=== PATIENT | male | born 1975 | race Caucasian/White ===

== ENCOUNTER 2022-02-09 13:11 | Observation (INO) | payer OTHER ==
[2022-02-09] MEDS ORDERED: Ondansetron 4 MG/2 ML SDV IVPUSH ONE (14:20)
[2022-02-09] MEDS: Doxycycline 100 MG in Sodium Chloride 0.9% 100 ML IV SCH (14:28)
[2022-02-09] MEDS ORDERED: Lactated Ringers 1,000 ML IV SCH (14:30)
[2022-02-09 14:47] LABS: ESTIMATED GFR 33 mL/min (>60)
[2022-02-09] MEDS ORDERED: Acetaminophen 325 MG Tab PO ONE (16:02)
[2022-02-09] MEDS ORDERED: Sodium Chloride 0.9% 10 ML Syringe FLUSH PRN (21:55)
[2022-02-09] MEDS ORDERED: Temazepam 15 MG Cap PO PRN (21:55)
[2022-02-09] MEDS ORDERED: Ondansetron 4 MG/2 ML SDV IV PRN (21:55)
[2022-02-09] MEDS ORDERED: Acetaminophen 650 MG Supp RECTAL PRN (21:55)
[2022-02-09] MEDS ORDERED: Acetaminophen/HYDROcodone 325-5 MG Tab PO PRN (21:55)
[2022-02-09] MEDS ORDERED: Magnesium Hydroxide 400 MG/5 ML Susp 30 ML Cup PO PRN (21:55)
[2022-02-09] MEDS ORDERED: Enoxaparin 40 MG/0.4 ML Syringe SUBCUT SCH (22:00)
[2022-02-09] MEDS: Lactated Ringers 1,000 ML IV SCH (22:59)
[2022-02-09] MEDS ORDERED: Acetaminophen 325 MG Tab PO PRN (23:44)
[2022-02-10] MEDS: Doxycycline 100 MG in Sodium Chloride 0.9% 100 ML IV SCH (02:28)
[2022-02-10] MEDS: Lactated Ringers 1,000 ML IV SCH (08:24)
[2022-02-10] MEDS: Mycophenolate Mofetil 250 MG Cap PO SCH ×2 (09:55→20:31)
[2022-02-10] MEDS: Verapamil 120 MG Tab.ER PO SCH (09:55)
[2022-02-10] MEDS: Cholecalciferol (Vitamin D3) 25 MCG Tab PO SCH (09:55)
[2022-02-10] MEDS: Doxycycline 100 MG Cap PO SCH ×2 (10:10→20:37)
[2022-02-10] MEDS ORDERED: traZODone 50 MG Tab PO SCH ×2 (11:00→21:00)
[2022-02-10] MEDS ORDERED: predniSONE 5 MG Tab PO SCH ×2 (11:00→21:00)
[2022-02-10] MEDS ORDERED: Methocarbamol 500 MG Tab PO SCH ×2 (11:00→21:00)
[2022-02-10] MEDS ORDERED: Tacrolimus 0.5 MG Cap PO SCH ×2 (11:00→13:00)
[2022-02-10] MEDS ORDERED: Magnesium Oxide 400 MG Tab PO SCH ×2 (12:00→21:00)
[2022-02-10] MEDS ORDERED: Loperamide 2 MG Cap PO PRN (18:28)
[2022-02-10] MEDS: MAG PO SCH (20:29)
[2022-02-10] MEDS ORDERED: Enoxaparin 40 MG/0.4 ML Syringe SUBCUT SCH (21:00)
[2022-02-10] MEDS ORDERED: TACROLIMUS 1 MG PO SCH (21:00)
[2022-02-10] MEDS ORDERED: Sertraline 50 MG Tab PO SCH (21:00)
[2022-02-10] MEDS ORDERED: atorvaSTATin 20 MG Tab PO SCH (21:00)
[2022-02-11] MEDS ORDERED: TACROLIMUS 1 MG PO SCH (09:00)
[2022-02-11] MEDS: Verapamil 120 MG Tab.ER PO SCH (09:39)
[2022-02-11] MEDS: Doxycycline 100 MG Cap PO SCH (09:39)
[2022-02-11] MEDS: Mycophenolate Mofetil 250 MG Cap PO SCH (09:39)
[2022-02-11] MEDS: Cholecalciferol (Vitamin D3) 25 MCG Tab PO SCH (09:39)
[2022-02-11] MEDS: MAG PO SCH (09:43)
[2022-02-12 13:12] LABS: BABESIA MICROTI IGG <1:10 (Neg:<1:10); BABESIA MICROTI IGM <1:10 (Neg:<1:10)
[2022-02-13 20:07] LABS: CMV QUANT DNA PCR (PLASMA) Negative (Negative)
[2022-02-16 14:09] LABS: HGE IGG TITER Negative (Neg:<1:64); HGE IGM TITER Negative (Neg:<1:20)
== END 2022-02-11 13:54 | disposition home or self-care (01) ==
LOC: JP.ED 13:11 → JP.MS 21:50
PROVIDERS: ADMIT Internal Medicine; ATTEND Internal Medicine
DX: A77.49 Other ehrlichiosis (principal); N18.32 Chronic kidney disease, stage 3b; K52.9 Noninfective gastroenteritis and colitis, unspecified; R05.9 Cough, unspecified; E87.2 Acidosis; Z94.0 Kidney transplant status; Z86.16 Personal history of COVID-19; Z98.890 Other specified postprocedural states; Z88.7 Allergy status to serum and vaccine; Z79.899 Other long term (current) drug therapy; Z20.822 Contact with and (suspected) exposure to COVID-19
CPT/HCPCS: 36415; 71045; 71046; 80048; 80053; 81001; 82272; 82803; 83605; 84145; 85025; 86140; 86618; 86666; 86753; 87040; 87046; 87086; 87497; 87635; 87799; 87899; 89055; 96361; 96365; 96366; 96372; 96375; 99285; A9270; G0378; J1650; J2405; J3490; J7120; J7512; 99217; 99219; 99225; 99284; U0002